=== PATIENT | male | born 1990 | race Hispanic/Latino ===

== ENCOUNTER 2019-11-07 19:34 | Emergency (ER) | payer OTHER ==
[~2019-11-07] VITALS: Ht 172.7 cm; Wt 81.6 kg
[2019-11-07 19:52] VITALS: BP 142/66
[2019-11-07] MEDS ORDERED: TRIPLE ANTIBIOTIC OINTMENT TP ONE (20:01)
--- NOTE | 2019-11-07 20:04 | ER.PDOC ---
General Chief Complaint: Requesting Medical Care Stated Complaint: PUNCTURED RIGHT FOOT TRAVEL OUT OF US: No Time seen by MD: 19:46 Source: patient Exam Limitations: no limitations History of Present Illness Initial Comments patient was on boat and his foot slipped causing puncture wound on the right foot between the 1st and 2nd toes no fb, no other injury or complaint, neuro intact has full range of motion and sensation. Timing/Duration: 4-6 hours Severity: mild Associated Symptoms: denies symptoms Past Medical History Medical History: no pertinent history Surgical History: no surgical history Social History Alcohol Use: none Drug Use: none Review of Systems Constitutional: denies chills, denies fever EENTM: denies eye pain Cardiovascular: denies chest pain Gastrointestinal: denies abdominal pain Genitourinary: denies pain Musculoskeletal: denies back pain, denies neck pain Skin: denies rash Psychiatric/Neurological: denies headache Physical Exam General Appearance: No Apparent Distress, WD/WN EENT: eyes nml inspection Neck: Non-Tender Respiratory: chest non-tender, lungs clear CVS: reg rate & rhythm Gastrointestinal: Non Tender Back: Normal Inspection Extremities: Normal Range of Motion 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 Results/Orders Results/Orders Orders - JASVIR AMARO MD Neomycin/Bacitracin/Polymyxinb (Triple A (11/07/19 20:01) Vital Signs Date Time Temp Pulse Resp B/P (MAP) Pulse Ox O2 Delivery O2 Flow Rate FiO2 11/07/19 19:59 99.2 80 18 99 11/07/19 19:52 99.2 80 18 99 11/07/19 19:52 99.2 80 18 irrigation and sterilization by nursing staff while patient in er today. antibiotic ointment and sterile dressing by nursing staff. Departure Time of Disposition: 20:02 Disposition: 01 HOME, SELF-CARE Impression: Primary Impression: Puncture wound Condition: Stable Patient Instructions: Puncture Wound Referrals: PCP,UNKNOWN (PCP) PRIMARY CARE PROVIDER PRAVIN CONRAD MD Additional Instructions: return for any worsening symptoms, keep clean and dry, antibiotic ointment and sterile dressing daily, Duration or Time Spent with Pa: 10 JASVIR AMARO MD Nov 07, 2019 20:04
== END 2019-11-07 20:15 | disposition home or self-care (01) ==
LOC: ER 19:34
DX: S91.331A Puncture wound without foreign body, right foot, initial encounter (principal); W01.0XXA Fall on same level from slipping, tripping and stumbling without subsequent striking against object, initial encounter; Y93.89 Activity, other specified; Y92.89 Other specified places as the place of occurrence of the external cause; Y99.8 Other external cause status
CPT/HCPCS: 99284